=== PATIENT | male | born 1985 | race Two or more races ===

== ENCOUNTER 2024-10-19 11:41 | Emergency (ER) | payer MEDICAID ==
[~2024-10-19] VITALS: Ht 175.3 cm; Wt 82.0 kg
[2024-10-19 11:54] VITALS: O2SAT 99
[2024-10-19 11:55] VITALS: BP 119/84; PULSE 86; RESP 18; TEMP 36.8; O2SAT 98
[2024-10-19] MEDS ORDERED: AM250 MT (12:43)
[2024-10-19] MEDS ORDERED: IBUP-2028 MT (12:43)
[2024-10-19] MEDS: KETOROLAC 30MG/ML VIAL IM ONE (12:45)
== END 2024-10-19 16:13 | disposition home or self-care (01) ==
LOC: ER 11:41
DX: B34.9 Viral infection, unspecified (principal)
CPT/HCPCS: 99283; 96372; J1885